=== PATIENT | male | born 1965 | race Caucasian/White ===

== ENCOUNTER 2025-05-02 12:48 | Inpatient (IN) | payer OTHER, SELFPAY ==
[2025-05-02] VITALS (12 sets, daily range): BP systolic 149–204; BP diastolic 89–120; BMI 22.5; BMI 21.1
[2025-05-02 07:45] LABS: Hematocrit 35.3 % (39.0-52.0); Hemoglobin 12.4 g/dL (13.0-18.0); Mean Corp Hgb Conc. 35.1 g/dL (33.0-37.0); Mean Corpuscular Volume 87.6 fL (80.0-94.0); Nucleated Red Blood Cells % 0 % (-); Platelet Count 265 10^3/uL (130-400); Red Cell Dist. Width 16.0 % (11.5-14.5)
--- NOTE | 2025-05-02 07:45 | ED.GENMED ---
History of Present Illness
<Sommer Joyner MD, Resident - Last Filed: 05/02/25 11:53>
General
Chief Complaint: Alcohol Problem
Source: patient
Time Seen by Provider: 05/02/25 07:09
Nursing documentation reviewed up to this point in time: agreed with except (Pt states last cocaine use was 20 years ago)
History of Present Illness
History of Present Illness:
Mr. Esteban Herrera is a 59-year-old male with a PMH notable for alcohol, cocaine, and fentanyl use disorders and pancreatitis, who is presenting with nausea, vomiting, chest pain, abdominal pain, and shivers for 2 days. He presents from methadone
clinic (Dr. Wright), where he was given a 2-day supply of methadone. They told him to come to the ED.
2 days ago, after having alcohol, fentanyl, and benzodiazepines, he started vomiting and developed throat and chest pain 1 hour later, which he rates as 10 out of 10 now. He reports losing consciousness and being shaken awake. He endorses blood in
his emesis. He has not eaten in 2 days and is requesting ice chips.
He states his 'tremors' occur when he is cold, and disappear when he is warm. He endorses hallucinations, including seeing ghosts. He denies having fevers.
He states he started drinking 1 year ago after the of his mom, whom he was close with. He was notified in senior care that she had past 2 weeks after she had passed. He he cremated her and then started using substances. He endorses having
pancreatitis before.
Patient states he wants to get better and pursue long-term [facility] treatment. Sees Dr. Wright at a methadone clinic in [place].
Past History
<Sommer Joyner MD, Resident - Last Filed: 05/02/25 11:53>
Social History
Alcohol: Chronic alcoholic
Drug: Narcotics and Other (benzo)
Review of Systems
<Sommer Joyner MD, Resident - Last Filed: 05/02/25 11:53>
Review of Systems
All Other Systems: ROS reviewed and negative except as documented in HPI and ROS
Cardiac: Reports chest pain (With throat pain and upper abdominal pain)
ABD/GI: Reports abdominal pain and vomiting (Hematemesis)
Psychiatric: Reports hallucinations (Such as seeing ghosts)
Phy Exam
<Sommer Joyner MD, Resident - Last Filed: 05/02/25 11:53>
Physical Exam
Physical Exam:
General: dry mucous membranes
Cardiovascular: Tachycardic, no pedal edema
GI: Tenderness to palpation in all quadrants, normal bowel sounds
Lungs: Clear to auscultation bilaterally, no subcutaneous emphysema
Neuro: Not tremulous, alert
Skin: No diaphoresis, no excoriations
Scores
<Sommer Joyner MD, Resident - Last Filed: 05/02/25 11:53>
Withdrawal Assessment of Alcohol
Withdrawal Assessment Completed?: Yes
Nausea and Vomiting: Intermittent nausea with dry heaves
Tactile Disturbances: Moderate itching, pins and needles , burning or numbness
Tremor: No tremor
Auditory Disturbances: Not present
Paroxysmal Sweats: No sweat visible
Visual Disturbances: Moderately severe hallucinations
Anxiety: Moderately anxious, or guarded, so anxiety is inferred
Headache, Fullness in Head: Not present
Agitation: Normal activity
Orientation and clouding of sensorium: Disoriented for date by more than 2 calendar days (But can do serial additions)
Total CIWA Score: 18
Alcohol Withdrawal Medication Recommendation: Equal to MSAS Score 8-11. Lorazepam 1-2mg IV NOW & re-assess q1hr
Course
<Sommer Joyner MD, Resident - Last Filed: 05/02/25 11:53>
Orders/Labs/Results
Orders:
Orders
05/02/25 06:45
EKG [Electrocardiogram (*1)] Urgent
Reason for Study: Chest Pain
05/02/25 06:46
EKG- Treatment ONCE
05/02/25 07:32
Alcohol Urgent
Basic Metabolic Panel Urgent
Complete Blood Count/With Diff Urgent
Lipase Urgent
Troponin I Urgent
05/02/25 08:19
Add On- LAB Urgent
Tests Added?: LFTs
CR Chest - 2 Views Urgent
Comment:
Reason For Exam: cp
05/02/25 08:23
Lorazepam [Ativan] 2 mg IV NOW STA
05/02/25 08:24
Pantoprazole [Protonix IV] 80 mg IV NOW STA
05/02/25 08:30
Sterile Water [Sterile Water For Injection] 20 ml .ROUTE .STK-MED
05/02/25 10:10
[id number] Urgent
Comment: HEMOLYZED
Potassium Urgent
Comment: HEMOLYZED
05/02/25 10:51
Clonidine [Catapres] 0.1 mg PO NOW STA
05/02/25 11:19
Troponin I Urgent
Abnormal Lab Results
05/02/25 05/02/25
07:32 10:10
RBC 4.03 L 10^6/uL
(4.70-6.10)
Hgb 12.4 L g/dL
(13.0-18.0)
Hct 35.3 L %
(39.0-52.0)
RDW 16.0 H %
(11.5-14.5)
Absolute Lymphs (auto) 0.3 L 10^3/uL
(1.2-3.4)
Neutrophils % 89.4 H %
(42.2-75.2)
Lymphocytes % 3.9 L %
(20.5-51.1)
Chloride 93 L mmol/L
(98-107)
BUN 31 H mg/dl
(9-20)
Glucose 160 H mg/dl
(70-99)
Direct Bilirubin 0.5 H mg/dl
(0.0-0.4)
05/02/25 07:32
05/02/25 10:10
Vital Signs
Initial and Last Documented VS:
Initial Vital Signs
Temp Pulse Resp BP Pulse Ox
98.1 F 120 16 199/120 98
05/02/25 06:50 05/02/25 06:50 05/02/25 06:50 05/02/25 06:50 05/02/25 06:50
Last Documented Vital Signs
Temp Pulse Resp BP Pulse Ox
98.1 F 98 16 176/113 100
05/02/25 06:50 05/02/25 11:15 05/02/25 11:15 05/02/25 11:13 05/02/25 08:30
<Dev Mares, DO - Last Filed: 05/02/25 11:37>
Orders/Labs/Results
Orders:
Orders
05/02/25 06:45
EKG [Electrocardiogram (*1)] Urgent
Reason for Study: Chest Pain
05/02/25 06:46
EKG- Treatment ONCE
05/02/25 07:32
Alcohol Urgent
Basic Metabolic Panel Urgent
Complete Blood Count/With Diff Urgent
Lipase Urgent
Troponin I Urgent
05/02/25 08:19
Add On- LAB Urgent
Tests Added?: LFTs
CR Chest - 2 Views Urgent
Comment:
Reason For Exam: cp
05/02/25 08:23
Lorazepam [Ativan] 2 mg IV NOW STA
05/02/25 08:24
Pantoprazole [Protonix IV] 80 mg IV NOW STA
05/02/25 08:30
Sterile Water [Sterile Water For Injection] 20 ml .ROUTE .STK-MED
05/02/25 10:10
Usyvf-Kiqo-Twhvmwp Urgent
Comment: HEMOLYZED
Potassium Urgent
Comment: HEMOLYZED
05/02/25 10:51
Clonidine [Catapres] 0.1 mg PO NOW STA
05/02/25 11:19
Troponin I Urgent
Abnormal Lab Results
05/02/25 05/02/25
07:32 10:10
RBC 4.03 L 10^6/uL
(4.70-6.10)
Hgb 12.4 L g/dL
(13.0-18.0)
Hct 35.3 L %
(39.0-52.0)
RDW 16.0 H %
(11.5-14.5)
Absolute Lymphs (auto) 0.3 L 10^3/uL
(1.2-3.4)
Neutrophils % 89.4 H %
(42.2-75.2)
Lymphocytes % 3.9 L %
(20.5-51.1)
Chloride 93 L mmol/L
(98-107)
BUN 31 H mg/dl
(9-20)
Glucose 160 H mg/dl
(70-99)
Direct Bilirubin 0.5 H mg/dl
(0.0-0.4)
05/02/25 07:32
05/02/25 10:10
Vital Signs
Initial and Last Documented VS:
Initial Vital Signs
Temp Pulse Resp BP Pulse Ox
98.1 F 120 16 199/120 98
05/02/25 06:50 05/02/25 06:50 05/02/25 06:50 05/02/25 06:50 05/02/25 06:50
Last Documented Vital Signs
Temp Pulse Resp BP Pulse Ox
98.1 F 98 16 176/113 100
05/02/25 06:50 05/02/25 11:15 05/02/25 11:15 05/02/25 11:13 05/02/25 08:30
<Sommer Joyner MD, Resident - Last Filed: 05/02/25 11:53>
MDM/Problems Addressed
Differential Diagnosis Includes:
Esophageal ulceration and/or rupture
Gastritis
Esophageal varices
Opioid withdrawal
Alcohol withdrawal
ACS
Vasospastic angina: Less likely as patient reports stopping cocaine 20 years ago
GERD
Pancreatitis
MDM/Problems Addressed:
Chest x-ray
N.p.o.
EKG sinus tachycardia with left axis deviation
Troponin 0.018; ACS unlikely
CMP: hypochloremia consistent with emesis, elevated BUN 31, normal Cr
Lipase normal; pancreatitis unlikely
LFT
CBC
IV fluids
Chronic conditions affecting care: Other (Alcohol, opioid, and benzodiazepine use disorders)
Acute Exacerbation and/or Progression of Chronic Illness: HTN
<Sommer Joyner MD, Resident - Last Filed: 05/02/25 11:53>
*Radiology
Radiology exam reviewed: radiology read reviewed
*Pulse Oximetry
SaO2: 98
Oxygen Mode of Delivery: Room air
Patient hypoxic: no
*EKG
Interpreted by ED Provider?: Yes
Rate: tachycardiac
Rhythm: sinus
[place]: left axis deviation
Interval: long QT
Ischemia: non-specific ST changes
*Prorate Clerk Interpretation
Rate: tachycardiac
Interpretation: abnormal
Rhythm: sinus
<Dev Mares, DO - Last Filed: 05/02/25 11:37>
*Critical Care Note
Total Time (30-74mins, 75-104mins- exclusive of procedures): 35 minutes
Data Reviewed
Source: patient
Further Testing Considered But Not Given:
Consider chest CT in light of his chest pain however given his vomiting and exam, and chest x-ray, hold off on CT imaging for now
<Sommer Joyner MD, Resident - Last Filed: 05/02/25 11:53>
Patient Management
Social determinants of health affecting care: Substance abuse
<Dev Mares, DO - Last Filed: 05/02/25 11:37>
Patient Management
Discussion with other providers: Hospitalist
ED Attending Note
<Sommer Joyner MD, Resident - Last Filed: 05/02/25 11:53>
-
Portions of this chart may have been created with voice recognition software.� Occasional wrong word or��sound alike� substitutions may have occurred due to the inherent limitations of voice recognition software.
<Dev Mares, - Last Filed: 05/02/25 11:37>
ED Attending Note
Patient seen and examined by attending physician: Yes
I performed a history and physical exam of patient and discussed management with resident, I reviewed resident's note and agree with documented findings and plan of care.: Yes
ED Attending Note:
Note:
CHIEF COMPLAINT(S)
Nausea, severe throat pain, feeling unwell.
HISTORY OF PRESENT ILLNESS
The patient, a 60-year-old male, presents with nausea, body-wide discomfort, and severe throat pain that began two days ago. These symptoms coincided with his move from [place]. The patient reports previous medical encounters at [facility]. He has a recent history of excessive alcohol intake, consuming a bottle of vodka or whiskey daily, and acknowledges regular fentanyl use via snorting. He ceased alcohol consumption after experiencing an inability to manage intake and was
previously found unconscious ten days ago, requiring hospitalization. He expresses a desire to quit substance use and mentions a readiness to consider rehabilitation.
He reports a previous critical health episode about ten days ago, where he was found unresponsive and required resuscitation at [facility]. The patients current medical examination reveals symptoms consistent with sinus
tachycardia, as evidenced by his heart rate of 107 to 110. His telemetry shows sinus tachycardia, and his blood pressure is elevated.
ALLERGIES
The patient reports an allergy to Toradol, which causes him to vomit.
SOCIAL HISTORY
The patient has a history of significant alcohol use, approximately one bottle of vodka or whiskey daily, and fentanyl use via insufflation. He expresses the desire to cease substance use and is open to rehabilitation.
PHYSICAL EXAM
General: Alert, in mild distress due to discomfort.
Cardiovascular: Regular heart rhythm with tachycardia at a rate of 107-110 bpm. Elevated blood pressure noted.
Respiratory: Lungs clear to auscultation with equal breath sounds bilaterally.
Gastrointestinal: Abdomen is soft, nondistended, with mild epigastric tenderness.
Neurological: Cranial nerves intact, no focal motor deficits observed.
PLAN
- Administer medications for relaxation and symptomatic relief.
- Initiate fluid therapy.
- Perform a chest X-ray.
- Conduct laboratory investigations.
- Consider pain management as necessary.
- Discuss rehabilitation options for substance use cessation.
DIFFERENTIAL DIAGNOSIS
The Differential Diagnosis includes, in no particular order and is not limited to:
1. Alcohol withdrawal
2. Substance use disorder
3. Gastroesophageal reflux disease
4. Acute pharyngitis
5. Peptic ulcer disease
6. Esophagitis
7. Viral tonsillitis
8. Sinus tachycardia secondary to substance use
9. Hypertensive urgency
10. Anxiety-related symptoms
Disposition:
SUMMARY OF ENCOUNTER
The patient, a 60-year-old male, presented with symptoms likely related to alcohol withdrawal after ceasing excessive alcohol use two days ago. His symptoms included hypertension, tachycardia, and hallucinations. Given his history of significant
alcohol intake and recent cessation, he was evaluated for possible alcohol withdrawal and alcoholic gastritis. Medications were administered to manage his symptoms and alleviate distress.
DISPOSITION
Admit.
ASSESSMENT
The patients clinical presentation and history strongly suggest alcohol withdrawal syndrome, alongside possible alcoholic gastritis, as indicated by nausea and epigastric discomfort.
EMERGENCY TREATMENTS ADMINISTERED
Clonidine was administered to address hypertension and tachycardia, and a proton pump inhibitor (PPI) was given for suspected alcoholic gastritis.
MANAGEMENT OF THE PATIENTS CARE WAS DISCUSSED WITH
The resident discussed patient management with the hospitalist team for admission.
PLAN
- Continue monitoring and managing symptoms of alcohol withdrawal.
- Initiate treatment for alcoholic gastritis with PPIs.
- Supportive care with intravenous fluids and medications to manage hypertension and tachycardia.
- Admission to the hospital for further observation and management of withdrawal symptoms.
MEDICATION RECONCILIATION
- Clonidine administered.
- Proton pump inhibitor administered.
MEDICAL DECISION MAKING
1. Number and Complexity of Problems Addressed: Chronic conditions affecting care include his substance use disorder. Differential diagnosis includes alcohol withdrawal, substance use disorder, hypertensive urgency, and anxiety-related symptoms.
2. Data:
- Category 1: Reviewed laboratory tests to assess the patients physiological status pertinent to withdrawal symptoms.
- Category 2: Management discussion with the hospitalist regarding the need for inpatient care due to the severity of symptoms.
3. Risk: Prescription medication was prescribed. Due to the risk of complications associated with alcohol withdrawal, hospitalization was warranted to ensure the patients safety and provide intensive monitoring and management.
DIAGNOSIS
- Alcohol withdrawal syndrome (ICD-10: F10.239)
- Alcoholic gastritis (ICD-10: K29.20)
- Hypertensive urgency (ICD-10: I16.0)
Discharge Plan
Departure
Patient Disposition: Admit
Date of Disposition: 05/02/25
Time of Disposition: 11:19
Admit to: IMU
Presentation/result/management discussed w/ accepting MD/DO: Hospitalist
Condition: Fair
Discharge Problem:
Acute hyperactive alcohol withdrawal delirium, Hiatal hernia with gastroesophageal reflux, Acute alcoholic gastritis
Prescriptions:
No Action
methadone 10 mg/5 mL Solution
40 mg PO DAILY
Patient Comments:
patient goes to [facility] in [facility].
Amlodipine Tablets
1 tab PO DAILY
Clonidine Tablets
0.1 mg PO BID
Metoprolol
1 tab PO DAILY
Patient Comments:
no pharamcy records, no ecw as of 05/02/25
quetiapine [Seroquel] 200 mg Tablet
200 mg PO HS
venlafaxine [Effexor XR] 150 mg Capsule,Extended Release 24hr
150 mg PO DAILY
Referrals:
Rosalie Gary MD [Family Provider, Internal Medicine]
Interventions
Interventions:
*General Assessment Last Done: 05/02/25 07:18
*ED- Fall Risk Assessment Last Done: 05/02/25 07:18
*ED COVID-19 Vaccine History Last Done: 05/02/25 07:18
ED- Neurological Assessment Last Done: 05/02/25 07:20
ED-Psychological Assessment Last Done: 05/02/25 07:47
Discharge Date and Time
Print Language: LITHUANIAN
[2025-05-02 08:10] LABS: Troponin I 0.018 ng/ml
[2025-05-02 08:24] LABS: Blood Urea Nitrogen 31 mg/dl (9-20); Calcium 9.5 mg/dl (8.4-10.2); Carbon Dioxide 22 mmol/L (22-30); Chloride 93 mmol/L (98-107); Estimated Creatinine Clearance 83 ml/min; Glucose 160 mg/dl (70-99); Lipase 140 U/L (23-300); Sodium 135 mmol/L (135-145); eGFR > 60.00
--- NOTE | 2025-05-02 08:26 | PHANOTE ---
med rec note- patient has no ecw, no pharmacy records or pd[facility] records to find medication
[2025-05-02] MEDS: PROTONIX IV 80 MG IV (08:35)
[2025-05-02] MEDS: ATIVAN 2 MG IV (08:35)
[2025-05-02 10:49] LABS: ALT (SGPT) 12 U/L (0-50); AST (SGOT) 35 U/L (17-59); Albumin 4.6 g/dl (3.5-5.0); Alkaline Phosphatase 97 U/L (38-126); Potassium 4.1 mmol/L (3.5-5.1); Total Protein 7.8 g/dl (6.3-8.2)
[2025-05-02] MEDS: CATAPRES 0.1 MG PO ×3 (10:59→23:02)
--- NOTE | 2025-05-02 11:19 | HPS.HSE ---
Family Physician
-
Family Physician: Rosalie Gary
Chief Complaint
-
Vomiting
History of Present Illness
This is a 59 y/o male with pmhx of essential hypertension, alcohol abuse, fentanyl abuse, benzodiazepine abuse and heroin abuse who presented to the ED on 05/02/2025 with nausea, vomiting, tremors, chills. This was accompanied by shortness of breath
and pain all over, but especially pain in his left abdomen. He reports these symptoms appeared after consuming fentanyl, heroin and 1 bottle of vodka 2 days ago. He also began to experience chest pain at that time in his midline chest and jaw, so he
decided to try taking benzos without improvement. He then became nauseous and began to vomit, and since then and today he has vomited 'hundreds' of times. Today just prior to his ED visit he began to vomit blood, which he describes as red and mushy.
He reports vomiting multiple times each hour, though has not vomited since arriving at the ED.
Today, he reports generally feeling very unwell, and states that he is done drinking and would like to go to an inpatient rehab after his admission. He denies any history of alcohol withdrawal in the past, denies any history of seizures. He denies
any recent use of NSAIDs. He does report having pancreatitis 2 times in the last 6 months.
Medical History
Past Medical History
Past Medical History: Reports HTN and Other (alcohol abuse, fentanyl abuse, benzodiazepine abuse, heroin abuse, cocaine abuse in remission)
Past Surgical History: Reports None
Social History
Tobacco: Smoker (10 cigarettes/day for 45 years)
Alcohol: Daily (Consumes 1 750mL bottle vodka daily)
Drug: Cocaine (Last use 20 years ago) and Other (Fentanyl, Benzodiazepines, Heroin)
Family History
Family History: CAD (Brother, from heart attack) and Hypertension (Mother)
Allergies / Home Medications
Allergies reflects when Allergies were last updated in [employer].
Home Medications with original date entered in [employer]
Allergy/Medication List:
Allergies
Allergy/AdvReac Type Severity Reaction Status Date / Time
No Known Allergies Allergy Verified 05/02/25 06:53
Home Medications
Amlodipine Tablets 1 tab PO DAILY 05/02/25
Clonidine Tablets 0.1 mg PO BID 05/02/25
Metoprolol 1 tab PO DAILY 05/02/25
methadone 10 mg/5 mL oral solution 40 mg PO DAILY 05/02/25
quetiapine 200 mg tablet (Seroquel) 200 mg PO HS 05/02/25
venlafaxine 150 mg capsule,extended release 24 hr (Effexor XR) 150 mg PO DAILY 05/02/25
Review of Systems
-
History Source: Patient
A 12 point ROS was completed and negative except as noted: Yes
Constitutional: Reports Fatigue, Sleep Disturbance and Chills
Respiratory: Reports Trouble Breathing; Denies Cough
Cardiac: Reports Chest Pain and Palpitations
Abdomen/GI: Reports Abdominal Pain, Nausea, Vomiting (Bloody recently) and Diarrhea (Non-bloody); Denies Constipated or Bloody Stools
: Reports No Symptoms
Musculoskeletal: Reports Joint Pain and Muscle Pain
Skin: Denies Itching or Rash
Neurological: Reports Dizzy, Headache and Weakness
Physical Exam
Vital Signs
Vital Signs
Temp Pulse Resp BP Pulse Ox
98.1 F 94 17 187/111 100
05/02/25 06:50 05/02/25 10:59 05/02/25 10:00 05/02/25 10:59 05/02/25 08:30
Physical Exam
General: Well Developed, Well Nourished, Pain and Chills
HEENT: NormoCephalic, Anicteric, Atraumatic, Nose Appears Normal and Ears Appear Normal
Respiratory: Other (Coarse breath sounds bilaterally)
Cardiac: S1/S2, Regular Rhythm and Tachycardia
GI: Soft and Tender (Diffusely Tender); No Distended
Rectal: Deferred by Provider
Genito-urinary: Deferred by me
Musculoskeletal: No Edema
Skin: Warm and Dry
Neuro: Awake, Alert and Oriented; No Slurred Speech or Tremors (Patient had already received a dose of Ativan prior to my visit. I did not observe any tremors during this physical exam)
Psych: Calm and Intact Judgment/Insight
Laboratory Results
-
05/02/25 07:32
05/02/25 10:10
Laboratory Results
Total Bilirubin 0.8 mg/dl (0.2-1.3) 05/02/25 10:10
AST 35 U/L (17-59) 05/02/25 10:10
ALT 12 U/L (0-50) 05/02/25 10:10
Alkaline Phosphatase 97 U/L (38-126) 05/02/25 10:10
Troponin I 0.018 ng/ml 05/02/25 07:32
Lipase 140 U/L (23-300) 05/02/25 07:32
Impression/Plan
-
IMPRESSION:
This is a 59 y/o male with pmhx of essential hypertension, alcohol abuse, fentanyl abuse, benzodiazepine abuse, heroin abuse who presented to the ED today with nausea/vomiting/tremors/chills due to withdrawal from all of the aformentioned substances.
PLAN:
Alcohol Withdrawal/Polysubstance Withdrawal
-Admitted patient to the hospital for acute withdrawal from multiple substances
-Will monitor COWS and MSAS. Phenobarbital taper not indicated at this time.
-Ordered Alcohol level, B-hydroxybutyrate, Magnesium, Phosphorus, Coagulation studies, UA, UDS, GGTP
-Started on IV maintenance fluids
-Ordered IV Pantoprazole, Thiamine supplementation, Folic Acid supplementation
-Ordered PRN Zofran for Nausea and PRN tylenol for Pain
-Will monitor
Essential Hypertension
-Continue home meds (Amlodipine, clonidine, metoprolol)
Cocaine Abuse in Remission
-Patient reports last use of cocaine 20 years ago
-Patient's hest pain unlikely to be prinzmetal angina due to 20 year remission history
-Ordered UDS
-Encouraged continued cessation
[2025-05-02 12:53] LABS: Troponin I 0.028 ng/ml
--- NOTE | 2025-05-02 13:56 | CM ---
Addendum entered by Roslyn Titus 05/02/25 14:13:
I notified Barb at [facility], she will speak to the patient about insurance.
Original Note:
CM reviewed chart and met with pt bedside in ED. Pt was living in [place] but states 2 days ago he gave up his place and moved in with his friend Alize. He does not know the address but confirms it is in [place]. He states it is a one story
home, no ABBIE.
Independent in ADLs and personal care at baseline, ambulates without assistive devices.
Pt states he has had inpatient Drug and Alcohol treatment in the past and is interested in this now. He currently goes to [facility].
[facility].
PCP: Rosalie Gary
Pharmacy: has not used local pharmacy
CM will continue to follow for discharge planning needs.
[2025-05-02 16:46] LABS: GGTP 34 U/L (15-73); Magnesium 1.6 mg/dl (1.6-2.3)
[2025-05-02 17:14] LABS: APTT 24.5 Sec (23.4-35.0); INR 1.03; PT 13.8 Sec (11.4-14.6)
[2025-05-02] MEDS: ATIVAN 1 MG PO ×2 (17:17→22:04)
[2025-05-02] MEDS: FOLVITE 1 MG PO (17:18)
[2025-05-02] MEDS: ZOFRAN 4 MG IV (17:21)
[2025-05-02 17:32] LABS: Urine Character Clear (Clear)
[2025-05-02 18:03] LABS: Urine Red Blood Cell 0-2 /HPF (0-2); Urine White Cell 0-2 /HPF (0-5)
[2025-05-02] MEDS: THIAMINE INJECTION 200 MG IV (20:34)
[2025-05-02] MEDS: ANESTHETIC LOZENGE 1 LOZENGE PO (20:34)
[2025-05-02] MEDS: TYLENOL 1000 MG PO (20:34)
[2025-05-02] MEDS: PROTONIX IV 40 MG IV (20:36)
[2025-05-02] MEDS: NSS (PRESERVATIVE FREE) 10 ML IV (20:36)
[2025-05-03] VITALS (8 sets, daily range): BP systolic 130–178; BP diastolic 66–105
[2025-05-03] MEDS: ANESTHETIC LOZENGE 1 LOZENGE PO ×2 (04:57→12:26)
[2025-05-03] MEDS: ZOFRAN 4 MG IV (05:36)
[2025-05-03] MEDS: NSS (PRESERVATIVE FREE) 10 ML IV ×2 (08:04→20:04)
[2025-05-03 08:05] LABS: ALT (SGPT) 11 U/L (0-50); AST (SGOT) 39 U/L (17-59); Albumin 4.0 g/dl (3.5-5.0); Alkaline Phosphatase 81 U/L (38-126); Blood Urea Nitrogen 27 mg/dl (9-20); Calcium 8.7 mg/dl (8.4-10.2); Carbon Dioxide 29 mmol/L (22-30); Chloride 99 mmol/L (98-107); Estimated Creatinine Clearance 70 ml/min; Glucose 97 mg/dl (70-99); Potassium 3.6 mmol/L (3.5-5.1); Sodium 134 mmol/L (135-145); Total Protein 7.1 g/dl (6.3-8.2); eGFR > 60.00
[2025-05-03] MEDS: METHADONE 100 MG/10 ML 40 MG PO (08:14)
[2025-05-03] MEDS: EFFEXOR XR 150 MG PO (08:18)
[2025-05-03] MEDS: TOPROL XL 50 MG PO (08:18)
[2025-05-03] MEDS: NORVASC 5 MG PO (08:18)
[2025-05-03] MEDS: FOLVITE 1 MG PO (08:19)
[2025-05-03] MEDS: CATAPRES 0.1 MG PO ×2 (08:19→17:45)
[2025-05-03 08:20] LABS: Hematocrit 28.2 % (39.0-52.0); Hemoglobin 9.7 g/dL (13.0-18.0); Mean Corp Hgb Conc. 34.4 g/dL (33.0-37.0); Mean Corpuscular Volume 88.4 fL (80.0-94.0); Platelet Count 197 10^3/uL (130-400); Red Cell Dist. Width 15.2 % (11.5-14.5)
[2025-05-03] MEDS: PROTONIX IV 40 MG IV ×2 (08:21→20:04)
[2025-05-03] MEDS: THIAMINE INJECTION 200 MG IV ×2 (08:22→21:53)
[2025-05-03] MEDS: FLUSH (NSS) 3 FLUSH IV (08:23)
[2025-05-03] MEDS: KCL 270 MEQ IV (08:41)
--- NOTE | 2025-05-03 10:18 | CM ---
Patient with Hx polysubstance abuse with Dx Drug and Etoh Withdrawal. Rom air. Per nurse: 1:1 observation for suicide risk. Psych Consult pending. COWS, MSAS per nurse. Receiving Methadone, IV Ativan prn. Per nurse; ambulatory in room.
CM Consult: Alcohol Withdrawal Risk, Suicide Risk
Message to Dr Lopez---> ED Nurse entered CM Consult for Suicide Risk- Case Management does not eval for suicide risk, if this is a concern Psych will need to evaluate.
Spoke with CHAUNCEY Grover; provided update patient is in 1:1 observation for suicide risk. Per Reilly, patient will need to be cleared via Psych Consult in order for an inpatient substance abuse facility to accept. A referral is being made to
[facility]. CHAUNCEY will follow up on 05/05 about inpatient rehab.
Plan follow up after seen by Psych.
Plan follow up with CHAUNCEY 05/05 re; [facility].
--- NOTE | 2025-05-03 11:39 | CS.PSYCHR ---
Consult Summary - Psychiatry
-
Pt is a 59 yo male, with history of opioid use, on Methadone maintenance, referred by his Methadone clinic for alcohol and benzo withdrawal, as well relapse on fentanyl. UDS on admission also positive for cocaine. Psychiatry asked to evaluate for
SI on screener. Pt seen resting in bed, in no acute distress, watching TV. Pt cooperative, making good eye contact, answering questions. He reports drinking a bottle of vodka or whiskey until 2 days prior to admission, when he developed N/V. Pt
states he is not going back to substance use, states he is '90%' regarding wanting to go to drug rehab- one that allows Methadone maintenance.
Pt denies any suicidal ideation, states he had a moment yesterday when he felt really bad from withdrawal symptoms. He denies any recent SI; he states he had SI in the past- 8 or 10 years ago.
Psych Hx: one admission [facility] with [facility] approx 8 or 10 years ago. Prescribed Effexor XR 150 mg QD for over 10 years, managed by PCP
On Seroquel 200 mg HS x 2 years; pt states he does not like Seroquel and wants to stop it (being held here, has prolonged QTc 513 today)
SH: just moved from [place] to stay with a friend in the [facility]; had a [employer] business on , but lost it
MSE: alert, oriented, calm, cooperative. Speech coherent, thought goal-directed. No signs of psychosis. Denies any suicidal ideation/plan/intent. Insight fair
Imp: Opioid Use d/o, on Methadone Maintenance tx, relapse on Fentanyl
Polysubstance Use d/o- Alcohol, benzo, cocaine
Unspecified depressive d/o, stable on long-standing Effexor XR. Denies SI, risk for self-harm appears low/ does not require 1:1 supervision
Rec: continue current detox mgt; continue Methadone maintenance. Consider drug rehab when stable
Continue existing Effexor XR. Hold off Seroque, may need to give tapering-down dose. Will follow.
--- NOTE | 2025-05-03 11:51 | PTCARENOTE ---
Dr Mota saw patient- per physician patient does not need to be on 1:1 observation for suicide. 1:1 observation stopped at 1145- bed alarm placed and instructed patient not to get OOB without assistance. voiced understanding. call nixon in reach.
plan of care on going.
--- NOTE | 2025-05-03 12:00 | PTCARENOTE ---
patient requesting ativan for restlessness and feeling jittery. MSAS 3, not qualifying for Ativan. patient aware. Dr Lopez notified and will place order for a one time dose of ativan. patient aware. plan of care on going.
[2025-05-03] MEDS: ATIVAN 1 MG PO ×2 (12:26→21:51)
--- NOTE | 2025-05-03 13:49 | W.PN.HOSP.TC ---
Today's Communication/Plan
-
monitor QT interval
CBC, CMP MONITOR
Assessment / Plan
Assessment / Plan
59 yrs old male with essential Hypertension,polysubstance abuse currently experiencing non cardiac chest pain.
Alcohol withdrawal syndrome/ Poly substance abuse):
-MSAS Score for today is= 3
-Phenobarbital taper not indicated at this time.
-Positive for Methodone, Fentanyl, Benzodiazepines, Cocaine.
-Started on IV maintenance fluids
- IV Pantoprazole, Thiamine supplementation, Folic Acid supplementation is given for the withdrawal symptoms.
-Ordered PRN Zofran for Nausea and PRN tylenol for Pain
-ECG : showed QTc Int : 513 ms( prolongation), might be due to seroquel 200mg; and medication held for today. Tomorrow (continue to monitor QT prolongation)
Opioid Withdrawal:
Currently patient on Methadone 40 mg PO maintenance dose daily.
Essential Hypertension
-Continuing with home meds (Amlodipine, clonidine, metoprolol)
Cocaine Abuse in Remission
-Patient reports last use of cocaine 20 years ago
-Patient's chest pain unlikely to be prinzmetal angina due to 20 year remission history
-Encouraged continued cessation.
Anticipated Discharge: 24 - 48 hours
Subjective/Interval History
-
Date of Service: May 03, 2025
Patient has concerns for chest pain from jaw to supra abdominal pain for the whole. and he needs Ativan for his chest pain.
Objective Data
-
Labs:
05/03/25 13:44
05/03/25 07:12
Laboratory Results
PT 13.8 Sec (11.4-14.6) 05/02/25 16:50
INR 1.03 05/02/25 16:50
APTT 24.5 Sec (23.4-35.0) 05/02/25 16:50
Total Bilirubin 0.8 mg/dl (0.2-1.3) 05/03/25 07:12
AST 39 U/L (17-59) 05/03/25 07:12
ALT 11 U/L (0-50) 05/03/25 07:12
Alkaline Phosphatase 81 U/L (38-126) 05/03/25 07:12
Troponin I 0.028 ng/ml D 05/02/25 11:57
Lipase 140 U/L (23-300) 05/02/25 07:32
Laboratory Results
05/03/25 05/03/25
07:12 13:44
WBC 5.7 Pending
Hgb 9.7 L D Pending
Hct 28.2 L Pending
Plt Count 197 D Pending
Sodium 134 L
Potassium 3.6
Chloride 99
Carbon Dioxide 29
BUN 27 H
Creatinine 1.0
Glucose 97
Calcium 8.7
Total Bilirubin 0.8
AST 39
ALT 11
Alkaline Phosphatase 81
Vital Signs:
Vital Signs
Temp Pulse Resp BP Pulse Ox
97.6 F 65 20 161/98 100
05/03/25 11:11 05/03/25 11:11 05/03/25 11:11 05/03/25 11:11 05/03/25 11:11
I&O
05/02/25 05/03/25 05/04/25
06:59 06:59 06:59
Intake Total 120 / 120
Output Total 675 / 675
Balance -555 / -555
Review of Systems
-
History Source: Patient
Constitutional: Reports No Symptoms
Cardiac: Reports Other (pain from jaw to lower abdomen mentioned as a sharp pain. )
Genitourinary: Reports No Symptoms
Musculoskeletal: Reports No Symptoms
Skin: Reports No Symptoms
Neuro: Reports No Symptoms
Endocrine: Reports No Symptoms
Hematologic / Lymphatic: Reports No Symptoms
Allergy / Immunology: Reports No Symptoms
Physical Exam
-
General: Appears in Distress
HEENT: Normocephalic
Respiratory: Clear to Auscultation
Cardiac: Regular Rhythm and S1/S2
GI: Soft and Nontender
Genito-urinary: No Costovertebral Tender
Musculoskeletal: No Clubbing
Skin: Warm
Neuro: AO x 3
Psych: Calm
[2025-05-03 13:53] LABS: Hematocrit 27.8 % (39.0-52.0); Hemoglobin 9.8 g/dL (13.0-18.0); Mean Corp Hgb Conc. 35.3 g/dL (33.0-37.0); Mean Corpuscular Volume 87.4 fL (80.0-94.0); Nucleated Red Blood Cells % 0 % (-); Platelet Count 184 10^3/uL (130-400); Red Cell Dist. Width 15.0 % (11.5-14.5)
[2025-05-03] MEDS: CARAFATE SUSPENSION 1 GM PO ×2 (18:10→21:51)
[2025-05-03] MEDS: APRESOLINE 5 MG IV (20:57)
[2025-05-04] VITALS (7 sets, daily range): BP systolic 138–187; BP diastolic 82–112
[2025-05-04] MEDS: CATAPRES 0.1 MG PO ×4 (00:12→23:37)
[2025-05-04] MEDS: BENADRYL 12.5 MG IV (04:24)
--- NOTE | 2025-05-04 04:47 | PTCARENOTE ---
2304: BP 151/87 HR 68. Pt resting in bed. Current MSAS 1.
2150: Pt continues with anxiety, BP 190/95 HR 61- MSAS 5- 1 mg PO ativan given per order.
1912: Pts BP 178/104 HR 66 pt received clonidine at 1744 rechecked at 2019 177/105, House SIGNAL MECHANIC aware. Checked manual 210/100- pt stating anxiety- scoring 4 on MSAS. SIGNAL MECHANIC notified. Order placed IV hydralazine 5 mg- given at 2056.
--- NOTE | 2025-05-04 06:22 | PTCARENOTE ---
Patient with complaints of nausea, prolonged QT noted on telemetry, pt with orders for zofran. House REGISTERED REPRESENTATIVE aware given IV diphenhydramine 12.5 mg for nausea X1 dose. Checked on pt this AM, pt drowsy but arousable to voice. Pt made this RN aware that
he should not have antihistamines due to history of aggressive behavior. Pt currently pleasantly resting in bed, without any issue at this time. House REGISTERED REPRESENTATIVE made aware. Diphenhydramine and antihistamines added to allergy list.
[2025-05-04 07:08] LABS: Hematocrit 27.7 % (39.0-52.0); Hemoglobin 9.8 g/dL (13.0-18.0); Mean Corp Hgb Conc. 35.4 g/dL (33.0-37.0); Mean Corpuscular Volume 87.4 fL (80.0-94.0); Nucleated Red Blood Cells % 0 % (-); Platelet Count 198 10^3/uL (130-400); Red Cell Dist. Width 14.6 % (11.5-14.5)
[2025-05-04 07:27] LABS: ALT (SGPT) 12 U/L (0-50); AST (SGOT) 33 U/L (17-59); Albumin 3.9 g/dl (3.5-5.0); Alkaline Phosphatase 77 U/L (38-126); Blood Urea Nitrogen 21 mg/dl (9-20); Calcium 9.2 mg/dl (8.4-10.2); Carbon Dioxide 29 mmol/L (22-30); Chloride 100 mmol/L (98-107); Estimated Creatinine Clearance 78 ml/min; Glucose 94 mg/dl (70-99); Potassium 3.7 mmol/L (3.5-5.1); Sodium 133 mmol/L (135-145); Total Protein 7.0 g/dl (6.3-8.2); eGFR > 60.00
[2025-05-04] MEDS: METHADONE 100 MG/10 ML 40 MG PO (08:35)
--- NOTE | 2025-05-04 08:35 | W.PN.HOSP.TC ---
Today's Communication/Plan
-
CBC, CMP Follow up
pottasium 40 mEq PO given for today.
Hydroxyzine if the patient feels anxious.
He is interested in inpatient rehab upon discharge, psych following. Working with CM to find IP rehab.
Will be seen by CHAUNCEY on Monday.�
Assessment / Plan
Assessment / Plan
59 yrs old male with essential Hypertension,polysubstance abuse currently experiencing non cardiac chest pain.
Alcohol withdrawal syndrome/ Poly substance abuse):
-MSAS Score for today is= 3
-Phenobarbital taper not indicated at this time.
-Positive for Methodone, Fentanyl, Benzodiazepines, Cocaine.
-Started on IV maintenance fluids
- IV Pantoprazole, Thiamine supplementation, Folic Acid supplementation is given for the withdrawal symptoms.
-Ordered PRN Zofran for Nausea and PRN tylenol for Pain
-ECG : showed QTc Int shortened 455 ms , might be due to seroquel 200mg; and medication held. Tomorrow (continue to monitor QT prolongation)
- K+ 40 mEq PO started for low pottasium level 3.7 (05/04)
Opioid Withdrawal:
Currently patient on Methadone 40 mg PO maintenance dose daily.
Essential Hypertension
Continuing with home meds (Amlodipine, clonidine, metoprolol XL 50 mg)
Cocaine Abuse in Remission
-Patient reports last use of cocaine 20 years ago
-Patient's chest pain unlikely to be prinzmetal angina due to 20 year remission history
-Encouraged continued cessation.
Disposition: pending (in pt rehab)
Anticipated Discharge: Within 24 hours
Subjective/Interval History
-
Date of Service: May 04, 2025
Patient is getting better today for his difficulty in swallowing. He has no concerns for chest pain, palpitation, dyspnea, tremor, restlessness.
Objective Data
-
Labs:
05/04/25 06:27
05/04/25 06:27
Laboratory Results
PT 13.8 Sec (11.4-14.6) 05/02/25 16:50
INR 1.03 05/02/25 16:50
APTT 24.5 Sec (23.4-35.0) 05/02/25 16:50
Total Bilirubin 0.6 mg/dl (0.2-1.3) 05/04/25 06:27
AST 33 U/L (17-59) 05/04/25 06:27
ALT 12 U/L (0-50) 05/04/25 06:27
Alkaline Phosphatase 77 U/L (38-126) 05/04/25 06:27
Troponin I 0.028 ng/ml D 05/02/25 11:57
Lipase 140 U/L (23-300) 05/02/25 07:32
Laboratory Results
05/04/25
06:27
WBC 4.9
Hgb 9.8 L
Hct 27.7 L
Plt Count 198
Sodium 133 L
Potassium 3.7
Chloride 100
Carbon Dioxide 29
BUN 21 H
Creatinine 0.9
Glucose 94
Calcium 9.2
Total Bilirubin 0.6
AST 33
ALT 12
Alkaline Phosphatase 77
Vital Signs:
Vital Signs
Temp Pulse Resp BP Pulse Ox
98.2 F 66 16 138/82 97
05/04/25 07:20 05/04/25 07:20 05/04/25 07:20 05/04/25 07:20 05/04/25 07:20
I&O
05/03/25 05/04/25 05/05/25
06:59 06:59 06:59
Intake Total 120 / 120
Output Total 675 / 675 350 / 350
Balance -555 / -555 -350 / -350
Review of Systems
-
History Source: Patient
EENT: Reports No Symptoms Reported
Respiratory: Reports No Symptoms
Cardiac: Reports No Symptoms
Abdomen/GI: Reports Abdominal Pain and Other (difficulty in swallowing and pain through out his food pipe.)
Genitourinary: Reports No Symptoms
Musculoskeletal: Reports No Symptoms
Skin: Reports No Symptoms
Neuro: Reports No Symptoms
Endocrine: Reports No Symptoms
Hematologic / Lymphatic: Reports No Symptoms
Allergy / Immunology: Reports No Symptoms
Physical Exam
-
General: No Apparent Distress
Respiratory: Clear to Auscultation
Cardiac: Regular Rhythm and S1/S2
GI: Soft and Nontender
Genito-urinary: No Costovertebral Tender
Skin: Warm
Neuro: AO x 3
Hematologic / Lymphatic: No Lymphadenopathy
[2025-05-04] MEDS: PROTONIX IV 40 MG IV ×2 (08:41→21:49)
[2025-05-04] MEDS: CARAFATE SUSPENSION 1 GM PO ×4 (08:41→21:49)
[2025-05-04] MEDS: EFFEXOR XR 150 MG PO (08:41)
[2025-05-04] MEDS: TOPROL XL 50 MG PO (08:41)
[2025-05-04] MEDS: NSS (PRESERVATIVE FREE) 10 ML IV ×2 (08:42→21:50)
[2025-05-04] MEDS: THIAMINE INJECTION 200 MG IV ×2 (08:42→21:58)
[2025-05-04] MEDS: FOLVITE 1 MG PO (08:42)
[2025-05-04] MEDS: NORVASC 5 MG PO (08:42)
[2025-05-04] MEDS: FLUSH (NSS) 2 FLUSH IV ×2 (08:43→18:31)
[2025-05-04] MEDS: ATIVAN 1 MG PO ×2 (10:59→19:38)
[2025-05-04] MEDS: KCL 40 MEQ PO (12:01)
--- NOTE | 2025-05-04 14:49 | W.PN.UPDATE ---
Update Note
Progress Note Update
Pt seen, resting in bed watching TV. Pt alert, oriented, calm, cooperative, in no apparent distress. Pt states he had started to hallucinate prior to admission, reports he feels much better here, states he was 'in [place].' Pt asking about sleep
agents, but has tried most or can't tolerate them (eg antihistamines cause agitation per pt). Pt states he would need a drug rehab that continues Methadone maintenance- has been to [facility] '5 times, and somebody always dies.' Pt states he feels
okay in mood, prefers not to take Seroquel any more, c/o side effects. [place] appears positive, pt socially engaging, denies SI.
Imp: Opioid Use d/o, on Methadone Maintenance tx, relapse on Fentanyl
Polysubstance Use d/o- Alcohol, benzo, cocaine
Unspecified depressive d/o, stable on long-standing Effexor XR
Rec: continue current detox mgt; continue Methadone maintenance. Consider drug rehab when stable
Will follow intermittently
[2025-05-04] MEDS: ZOFRAN 4 MG IV (18:30)
[2025-05-05] VITALS (10 sets, daily range): BP systolic 143–179; BP diastolic 83–108
[2025-05-05] MEDS: APRESOLINE 5 MG IV (04:51)
[2025-05-05] MEDS: ATIVAN 1 MG PO ×3 (06:10→16:53)
[2025-05-05 07:15] LABS: Hematocrit 29.1 % (39.0-52.0); Hemoglobin 10.4 g/dL (13.0-18.0); Mean Corp Hgb Conc. 35.7 g/dL (33.0-37.0); Mean Corpuscular Volume 87.4 fL (80.0-94.0); Nucleated Red Blood Cells % 0 % (-); Platelet Count 213 10^3/uL (130-400); Red Cell Dist. Width 14.6 % (11.5-14.5)
--- NOTE | 2025-05-05 07:37 | W.PN.HOSP.TC ---
Addendum entered and electronically signed by Mercedez Campo MD 05/05/25 14:21:
I saw and evaluated the patient independently. I reviewed the resident�s note and agree with findings and plan as documented by Dr. Muleler.
GENERAL: well developed, well nourished, male, diaphoretic and anxious--mildly nauseous
HEENT: NC/AT
HEART: regular rate and rhythm, +S1, +S2
LUNGS : clear to auscultation bilaterally
ABDOM: soft, tender LLQ with some guarding, nondistended, + bowel sounds
EXT: no cyanosis, clubbing, or edema
NEUROLOGIC: grossly intact
Alcohol Withdrawal/Polysubstance Withdrawal --urine drug screen positive for methadone, fentanyl, benzodiazepines, cocaine--cont MSAS and COWS protocols--follow K, Mag--cont thiamine, folate--antiemetics--pt agreeable to inpt therapy post
hospitalization--looking at [place]--apprec [facility]
Abdominal Pain--LLQ--possibly due to diverticulitis, splenic infarct/issues, ischemia-- less likely pancreatitis, does not seem like ascites--will check CT scan abdomen/pelvis--further direction based on results
QTc Prolongation--likely due to seroquel--improved since admission
Questionable Hematemesis (Kourtney Thornton tear vs alcoholic gastritis) -RESOLVED--Patient reported hematemesis just prior to arrival--no signs of active bleeding--HGB stable--
Suicidal Ideation--Patient positive for SI on screening upon admission--apprec psych--stop seroquel--effexor also may have some contribution but most likely from drug ingestion/withdrawal
Essential Hypertension--Continue Amlodipine, clonidine, metoprolol--BP still remains elevated--increase clonidine
DVT proph
code status--Full code
Original Note:
Today's Communication/Plan
-
CT Abdomen/Pelvis ordered
Assessment / Plan
Assessment / Plan
Assessment:
This is a 59 y/o male with pmhx of essential hypertension, polysubstance abuse (cocaine, benzos, fentanyl, alcohol) who presented to the ED from his [facility] on 05/02/2025 with nausea/vomiting/tremors/chills that started 2 days before while
consuming 1 bottle of vodka, fentanyl and benzos.
Alcohol Withdrawal/Polysubstance Withdrawal
-Admitted patient to the hospital for acute withdrawal from multiple substances. UDS on admission positive for methadone, fentanyl, benzodiazepines, cocaine
-Will monitor COWS and MSAS. Phenobarbital taper not indicated at this time.
-Continue Thiamine supplementation, Folic Acid supplementation, PRN Zofran for Nausea and PRN tylenol for Pain
-Patient has seen [facility] today for inpatient rehabilitation following his discharge
Abdominal Pain
-Previously diffuse, now left sided
-Ordered CT abdomen/Pelvis with oral and IV contrast
QTc Prolongation
-517 ms on arrival, 433 today
-Patient on both methadone and Seroquel at home.
-Continue telemetry with serial ECG
-Replete to keep Potassium > 4, Magnesium > 2
-Ordered magnesium
Questionable Hematemesis -RESOLVED
-Patient had reported seeing bright red blood in his vomit just prior to arrival
-DD concerning for Kourtney Thornton tear vs alcoholic gastritis
-Hemoglobin and Hematocrit have been stable for the last three days. No episodes of emesis since arrival
Suicidal Ideation
-Patient positive for SI on screening upon admission
-Status post psych evaluation, now off one-to-one
Essential Hypertension
-Continue home meds (Amlodipine, clonidine, metoprolol)
-Added one time 0.1mg dose of Clondine. T/c increasing dose to 0.2mg BID
Anticipated Discharge: 24 - 48 hours
Subjective/Interval History
-
Date of Service: May 05, 2025
Patient was doing well when I arrived. He reports is chest pain is much improved and he is now able to touch his own chest/neck area whereas previously it was acutely tender to the touch. He also reports improvement in his nausea and only has some
mild nausea with eating breakfast with Zofran. He does still report abdominal pain, now mainly on the left side, which has not improved much since his admission.
He did inform me that 10 days prior to his admission he overdosed on medications in [place]. He awoke in [facility] where they told him he had been for 1 hour before they successfully resuscitated him. He reports feeling silly
that he immediately went back to using drugs, and states that he is done with drugs and enthusiastic about going to inpatient rehab after discharge.
Objective Data
-
Labs:
Laboratory Results
05/05/25
06:36
WBC 4.7 L
Hgb 10.4 L
Hct 29.1 L
Plt Count 213
Sodium Pending
Potassium Pending
Chloride Pending
Carbon Dioxide Pending
BUN Pending
Creatinine Pending
Glucose Pending
Calcium Pending
Total Bilirubin Pending
AST Pending
ALT Pending
Alkaline Phosphatase Pending
Vital Signs:
Vital Signs
Temp Pulse Resp BP Pulse Ox
98.3 F 72 16 150/91 98
05/05/25 03:42 05/05/25 06:13 05/05/25 03:42 05/05/25 06:13 05/05/25 03:42
I&O
05/04/25 05/05/25 05/06/25
06:59 06:59 06:59
Intake Total 720 / 720
Output Total 350 / 350
Balance -350 / -350 720 / 720
Review of Systems
-
History Source: Patient
Constitutional: Denies Fever, No Appetite, Fatigue, Chills or Weakness
Respiratory: Denies Cough, Trouble Breathing or Wheezing
Cardiac: Denies Chest Pain, Palpitations or Syncope
Abdomen/GI: Reports Abdominal Pain and Nausea (Improving); Denies Vomiting, Diarrhea or Constipated
Musculoskeletal: Reports Muscle Pain
Skin: Denies Rash
Neuro: Reports Tremors; Denies Dizzy, Headache, Weakness, Numbness or Ataxia
Psych: Reports Anxious
Physical Exam
-
General: Well Developed, Well Nourished, No Apparent Distress, Comfortable and Sweats
HEENT: Normocephalic and Atraumatic
Respiratory: Clear to Auscultation
Cardiac: Regular Rhythm and S1/S2
GI: Soft, Nondistended and Tender (Left upper quadrant tenderness with light palpation, no tenderness to other quadrants)
Skin: Warm and Dry
Neuro: Awake, Alert and Oriented
Psych: Calm and Intact Judgement/Insight
[2025-05-05 07:39] LABS: ALT (SGPT) 11 U/L (0-50); AST (SGOT) 27 U/L (17-59); Albumin 4.1 g/dl (3.5-5.0); Alkaline Phosphatase 74 U/L (38-126); Blood Urea Nitrogen 17 mg/dl (9-20); Calcium 9.3 mg/dl (8.4-10.2); Carbon Dioxide 27 mmol/L (22-30); Chloride 100 mmol/L (98-107); Estimated Creatinine Clearance 70 ml/min; Glucose 103 mg/dl (70-99); Potassium 4.2 mmol/L (3.5-5.1); Sodium 133 mmol/L (135-145); Total Protein 7.0 g/dl (6.3-8.2); eGFR > 60.00
[2025-05-05] MEDS: METHADONE 100 MG/10 ML 40 MG PO (07:46)
[2025-05-05] MEDS: FOLVITE 1 MG PO (07:47)
[2025-05-05] MEDS: CARAFATE SUSPENSION 1 GM PO ×4 (07:47→22:33)
[2025-05-05] MEDS: THIAMINE INJECTION 200 MG IV (07:47)
[2025-05-05] MEDS: TOPROL XL 50 MG PO (07:48)
[2025-05-05] MEDS: NSS (PRESERVATIVE FREE) 10 ML IV ×2 (07:48→19:48)
[2025-05-05] MEDS: PROTONIX IV 40 MG IV ×2 (07:48→19:48)
[2025-05-05] MEDS: EFFEXOR XR 150 MG PO (07:49)
[2025-05-05] MEDS: NORVASC 5 MG PO (07:49)
[2025-05-05] MEDS: CATAPRES 0.1 MG PO ×3 (07:49→15:53)
[2025-05-05] MEDS: ZOFRAN 4 MG IV (08:40)
[2025-05-05 13:04] LABS: Magnesium 1.5 mg/dl (1.6-2.3)
[2025-05-05] MEDS: OMNIPAQUE 50 ML PO (14:20)
--- NOTE | 2025-05-05 14:46 | CM ---
Placed a call to [facility] and spoke with Lisa who confirmed that she is actively working on placement with patient.
Plan: Case management will continue to follow and assist with discharge planning. Rehab, assistance with help of [facility].
[2025-05-05] MEDS: MAGNESIUM OXIDE 500 MG PO (15:50)
[2025-05-05] MEDS: APRESOLINE 25 MG PO (16:54)
[2025-05-05] MEDS: CATAPRES 0.2 MG PO (19:48)
[2025-05-05] MEDS: VITAMIN B1 100 MG PO (19:48)
[2025-05-05] MEDS: FLUSH (NSS) 2 FLUSH IV (19:49)
[2025-05-05] MEDS: TYLENOL 1000 MG PO (19:49)
[2025-05-06] VITALS (7 sets, daily range): BP systolic 113–189; BP diastolic 68–105
[2025-05-06 07:05] LABS: Hematocrit 31.0 % (39.0-52.0); Hemoglobin 11.0 g/dL (13.0-18.0); Mean Corp Hgb Conc. 35.5 g/dL (33.0-37.0); Mean Corpuscular Volume 87.1 fL (80.0-94.0); Platelet Count 241 10^3/uL (130-400); Red Cell Dist. Width 14.8 % (11.5-14.5)
--- NOTE | 2025-05-06 07:20 | W.PN.HOSP.TC ---
Addendum entered and electronically signed by Mercedez Campo MD 05/06/25 14:31:
I saw and evaluated the patient independently. I reviewed the resident�s note and agree with findings and plan as documented by Dr. Mueller.
GENERAL: well developed, well nourished, male, much improved
HEENT: NC/AT
HEART: regular rate and rhythm, +S1, +S2
LUNGS : clear to auscultation bilaterally
ABDOM: soft, tender LLQ now minimal, nondistended, + bowel sounds
EXT: no cyanosis, clubbing, or edema
NEUROLOGIC: grossly intact
Alcohol Withdrawal/Polysubstance Withdrawal --urine drug screen positive for methadone, fentanyl, benzodiazepines, cocaine--cont MSAS and COWS protocols--follow K, Mag--cont thiamine, folate--antiemetics--pt agreeable to inpt therapy post
hospitalization--looking at [place]--apprec [facility]--await CM and [facility] updates
Abdominal Pain--LLQ--possibly due to diverticulitis, splenic infarct/issues, ischemia-- less likely pancreatitis, does not seem like ascites--CT scan abdomen/pelvis shows colitis vs underdistention--since pain resolving on its own, would not start
ABX without fever, chills, elevated WBC etc...
QTc Prolongation--likely due to seroquel--improved since admission
Questionable Hematemesis (Kourtney Thornton tear vs alcoholic gastritis) -RESOLVED--Patient reported hematemesis just prior to arrival--no signs of active bleeding--HGB stable--
Suicidal Ideation--Patient positive for SI on screening upon admission--apprec psych--stop seroquel--effexor also may have some contribution but most likely from drug ingestion/withdrawal
Essential Hypertension--Continue Amlodipine, clonidine, metoprolol--BP still remains elevated--increase clonidine
DVT proph
code status--Full code
Original Note:
Today's Communication/Plan
-
[facility] f/u today
Possible discharge today or tomorrow
Assessment / Plan
Assessment / Plan
Assessment:
This is a 59 y/o male with pmhx of essential hypertension, polysubstance abuse (cocaine, benzos, fentanyl, alcohol) who presented to the ED from his [facility] on 05/02/2025 with nausea/vomiting/tremors/chills that started 2 days before while
consuming 1 bottle of vodka, fentanyl and benzos.
Alcohol Withdrawal/Polysubstance Withdrawal
-Admitted patient to the hospital for acute withdrawal from multiple substances. UDS on admission positive for methadone, fentanyl, benzodiazepines, cocaine
-Will monitor COWS and MSAS. Phenobarbital taper not indicated at this time.
-Continue Thiamine supplementation, Folic Acid supplementation, PRN Zofran for Nausea and PRN tylenol for Pain
-Patient has seen [facility] yesterday for inpatient rehabilitation following his discharge. Plan for another discussion with [facility] today
-Discussed case with CM to coordinate discharge
Abdominal Pain
-Previously diffuse, then localized to left side, only present mildly now with deep palpation of the upper left quadrant
-CT abdomen/Pelvis with oral and IV contrast showed possibly cystitis vs colitis
-Patient previously had a UA during this admission that was negative for bacteria. WBC count has also been normal and he has been free of fevers, chills
-Will continue to monitor patient for improving/worsening symptoms
QTc Prolongation
-517 ms on arrival, 433 05/05/2025
-Patient on both methadone and Seroquel at home.
-Continue telemetry with serial ECG
-Replete to keep Potassium > 4, Magnesium > 2
-Will continue to trend BMP and magnesium
Hypomagnesemia -RESOLVED
-Magnesium 1.5 on labs 05/05/2025, now 1.7
-Will continue to replete with goal to keep Magnesium >2
-Continue magnesium oxide supplementation
-Continue to monitor magnesium
Hyperkalemia
-Potassium 3.6 on 05/03/2025, 5.2 today
-Patient had received one dose of 40mEq K on 05/03/2025
-Will continue to monitor BMP
Questionable Hematemesis -RESOLVED
-Patient had reported seeing bright red blood in his vomit just prior to arrival
-DD concerning for Kourtney Thornton tear vs alcoholic gastritis
-Hemoglobin and Hematocrit have been stable for the last three days. No episodes of emesis since arrival
Suicidal Ideation
-Patient positive for SI on screening upon admission
-Status post psych evaluation, now off one-to-one
Essential Hypertension
-Continue home meds (Amlodipine, metoprolol)
-Continue clonidine dose to 0.2mg BID, hydralazine PRN for SBP > 150
Anticipated Discharge: Within 24 hours
Subjective/Interval History
-
Date of Service: May 06, 2025
Patient was doing very well when I arrived. He states he had just received his Zofran, and that he had some nausea that quickly resolved over the course of our conversation. He also received Ativan and methadone while I was in the room. He states
his abdominal pain was significantly improved from yesterday, and only somewhat present when he pressed very hard against his abdomen. His chest pain was completely resolved. He states he will speak to [facility] again today to finish coordination for
the inpatient rehab he will be going to after his discharge.
Objective Data
-
Labs:
Laboratory Results
05/06/25
06:46
WBC 4.2 L
Hgb 11.0 L
Hct 31.0 L
Plt Count 241
Sodium Pending
Potassium Pending
Chloride Pending
Carbon Dioxide Pending
BUN Pending
Creatinine Pending
Glucose Pending
Calcium Pending
Vital Signs:
Vital Signs
Temp Pulse Resp BP Pulse Ox
98.3 F 56 16 150/84 100
05/06/25 03:03 05/06/25 03:03 05/06/25 03:03 05/06/25 03:03 05/06/25 03:03
I&O
05/05/25 05/06/25 05/07/25
06:59 06:59 06:59
Intake Total 720 / 720 900 / 900
Balance 720 / 720 900 / 900
Review of Systems
-
History Source: Patient
Constitutional: Denies Fever, No Appetite, Fatigue, Night Sweats, Chills or Weakness
Respiratory: Denies Cough, Trouble Breathing or Wheezing
Cardiac: Denies Chest Pain or Palpitations
Abdomen/GI: Reports Abdominal Pain (Significantly improved since yesterday, only present when pushing against his own stomach) and Nausea (Improved); Denies Vomiting, Diarrhea or Constipated
Musculoskeletal: Denies Joint Pain or Muscle Pain
Neuro: Reports Tremors; Denies Dizzy, Headache, Weakness, Numbness, Ataxia or Lightheadedness
Physical Exam
-
General: Well Developed, Well Nourished, No Apparent Distress and Comfortable
HEENT: Normocephalic and Atraumatic
Respiratory: Clear to Auscultation
Cardiac: Regular Rhythm, S1/S2 and Other (No tenderness to palpation of sternum or ribs)
GI: Soft and Tender (Very mild tenderness on palpation of left upper quadrant without guarding, nontender to other areas of abdomen )
Skin: Warm and Dry
Neuro: Awake, Alert, Oriented and Tremors (No tremors at rest, mild tremors when extending arms towards objects to grab them)
Psych: Calm and Intact Judgement/Insight
[2025-05-06 07:30] LABS: Blood Urea Nitrogen 20 mg/dl (9-20); Calcium 9.6 mg/dl (8.4-10.2); Carbon Dioxide 29 mmol/L (22-30); Chloride 100 mmol/L (98-107); Estimated Creatinine Clearance 70 ml/min; Glucose 109 mg/dl (70-99); Magnesium 1.7 mg/dl (1.6-2.3); Potassium 5.2 mmol/L (3.5-5.1); Sodium 134 mmol/L (135-145); eGFR > 60.00
[2025-05-06] MEDS: ZOFRAN 4 MG IV ×2 (07:39→18:45)
[2025-05-06] MEDS: METHADONE 100 MG/10 ML 40 MG PO (07:54)
[2025-05-06] MEDS: ATIVAN 1 MG PO ×2 (07:54→16:04)
[2025-05-06] MEDS: CARAFATE SUSPENSION 1 GM PO ×4 (07:56→21:06)
[2025-05-06] MEDS: NSS (PRESERVATIVE FREE) 10 ML IV ×2 (07:57→21:00)
[2025-05-06] MEDS: PROTONIX IV 40 MG IV ×2 (07:57→21:00)
[2025-05-06] MEDS: CATAPRES 0.2 MG PO ×2 (08:00→20:56)
[2025-05-06] MEDS: EFFEXOR XR 150 MG PO (08:00)
[2025-05-06] MEDS: MAGNESIUM OXIDE 500 MG PO (08:00)
[2025-05-06] MEDS: FOLVITE 1 MG PO (08:00)
[2025-05-06] MEDS: VITAMIN B1 100 MG PO ×2 (08:00→20:56)
[2025-05-06] MEDS: TOPROL XL 50 MG PO (08:04)
[2025-05-06] MEDS: NORVASC 5 MG PO (08:04)
[2025-05-06] MEDS: APRESOLINE 25 MG PO (11:43)
--- NOTE | 2025-05-06 16:08 | CM ---
Received call from Reilly at [facility] who stated that he is talking to admissions at [facility] and may be able to get patient in to facility. Attending updated. Clinical information faxed to Reilly for update to send to facility.
Plan: Case management will continue to follow and assist with discharge planning. Patient will transfer to dual facility.
[2025-05-06] MEDS: MELATONIN 5 MG PO (23:14)
[2025-05-07 03:00] VITALS: BP 151/79
[2025-05-07] MEDS: ATIVAN 1 MG PO (04:13)
--- NOTE | 2025-05-07 04:32 | PTCARENOTE ---
Pt [id number] to make his needs known.Pt anxious at times only.IV team was called to check on pt IV dressing & site.Pt refuses for a new IV & wants to sleep.SENIOR [employer] DEVELOPER communications billing analyst made aware of pt on telemetry refuses for a new IV at this time.Plan of care
continued.
[2025-05-07 07:10] LABS: Hematocrit 30.2 % (39.0-52.0); Hemoglobin 10.6 g/dL (13.0-18.0); Mean Corp Hgb Conc. 35.1 g/dL (33.0-37.0); Mean Corpuscular Volume 88.3 fL (80.0-94.0); Platelet Count 238 10^3/uL (130-400); Red Cell Dist. Width 15.1 % (11.5-14.5)
[2025-05-07 07:27] VITALS: BP 138/76
[2025-05-07 08:02] LABS: Blood Urea Nitrogen 19 mg/dl (9-20); Calcium 9.4 mg/dl (8.4-10.2); Carbon Dioxide 26 mmol/L (22-30); Chloride 99 mmol/L (98-107); Estimated Creatinine Clearance 64 ml/min; Glucose 103 mg/dl (70-99); Magnesium 1.7 mg/dl (1.6-2.3); Potassium 4.4 mmol/L (3.5-5.1); Sodium 133 mmol/L (135-145); eGFR > 60.00
[2025-05-07] MEDS: METHADONE 100 MG/10 ML 40 MG PO (08:05)
[2025-05-07] MEDS: CARAFATE SUSPENSION 1 GM PO ×3 (08:05→16:35)
[2025-05-07] MEDS: MAGNESIUM OXIDE 500 MG PO (08:06)
[2025-05-07] MEDS: EFFEXOR XR 150 MG PO (08:07)
[2025-05-07] MEDS: CATAPRES 0.2 MG PO (08:07)
[2025-05-07] MEDS: VITAMIN B1 100 MG PO (08:07)
[2025-05-07] MEDS: FOLVITE 1 MG PO (08:07)
[2025-05-07] MEDS: NORVASC 5 MG PO (08:07)
[2025-05-07] MEDS: TOPROL XL 50 MG PO (08:07)
[2025-05-07] MEDS: PROTONIX IV IV (08:08)
[2025-05-07] MEDS: NSS (PRESERVATIVE FREE) IV (08:08)
[2025-05-07] MEDS: PROTONIX 40 MG PO (08:20)
--- NOTE | 2025-05-07 09:52 | W.PN.HOSP.TC ---
Addendum entered and electronically signed by Mercedez Campo MD 05/07/25 15:29:
I saw and evaluated the patient independently. I reviewed the resident�s note and agree with findings and plan as documented by Dr. Mueller.
GENERAL: well developed, well nourished, male, much improved
HEENT: NC/AT
HEART: regular rate and rhythm, +S1, +S2
LUNGS : clear to auscultation bilaterally
ABDOM: soft, tender LLQ now minimal, nondistended, + bowel sounds
EXT: no cyanosis, clubbing, or edema
NEUROLOGIC: grossly intact
Alcohol Withdrawal/Polysubstance Withdrawal --urine drug screen positive for methadone, fentanyl, benzodiazepines, cocaine--cont MSAS and COWS protocols--follow K, Mag--cont thiamine, folate--antiemetics--pt agreeable to inpt therapy post
hospitalization--accepted at [place]--apprec [facility]--OK for d/c
Abdominal Pain--LLQ--possibly due to diverticulitis, splenic infarct/issues, ischemia-- less likely pancreatitis, does not seem like ascites--CT scan abdomen/pelvis shows colitis vs underdistention--since pain resolving on its own, would not start
ABX without fever, chills, elevated WBC etc...
QTc Prolongation--likely due to seroquel which was stopped--improved since admission
Questionable Hematemesis (Kourtney Thornton tear vs alcoholic gastritis) -RESOLVED--Patient reported hematemesis just prior to arrival--no signs of active bleeding--HGB stable--
Suicidal Ideation--Patient positive for SI on screening upon admission--apprec psych--stop seroquel--effexor also may have some contribution but most likely from drug ingestion/withdrawal
Essential Hypertension--Continue Amlodipine, clonidine, metoprolol--BP still remains elevated--increase clonidine
DVT proph
code status--Full code
Original Note:
Today's Communication/Plan
-
Discharge today
Assessment / Plan
Assessment / Plan
Assessment:
This is a 59 y/o male with pmhx of essential hypertension, polysubstance abuse (cocaine, benzos, fentanyl, alcohol) who presented [facility] the ED [facility] 05[facility]25 with nausea/vomiting/tremors/chills that started 2 days before while
consuming 1 bottle of vodka, fentanyl and benzos.
Alcohol Withdrawal/Polysubstance Withdrawal
-Admitted patient to the hospital for acute withdrawal from multiple substances. UDS on admission positive for methadone, fentanyl, benzodiazepines, cocaine
-Will monitor COWS and MSAS. Phenobarbital taper not indicated at this time.
-Continue Thiamine supplementation, Folic Acid supplementation, PRN Zofran for Nausea and PRN tylenol for Pain. Thiamine and Folic acid should be continued following discharge
-Patient has seen [facility] yesterday and the day prior for inpatient rehabilitation following his discharge. Plan for discharge today
-Discussed case with CM to coordinate discharge today
Abdominal Pain - RESOLVED
-Previously diffuse, then localized to left side, now resolved
QTc Prolongation - RESOLVED
-517 ms on arrival, has been less than 450 since 05/05/2025
-Patient had been on both methadone and Seroquel at home. No longer taking Seroquel
-Patient no longer requires telemetry as QTc prolongation has resolved now that he is no longer taking seroquel
Hypomagnesemia -RESOLVED
-Magnesium 1.5 on labs 05/05/2025, then 1.7 on 05/06/2025 following repletion
-Magnesium today remains stable at 1.7
Hyperkalemia - RESOLVED
-Potassium 3.6 on 05/03/2025, 5.2 05/06/2025, and normal today
-Patient had received one dose of 40mEq K on 05/03/2025
Questionable Hematemesis -RESOLVED
-Patient had reported seeing bright red blood in his vomit just prior to arrival
-DD concerning for Kourtney Thornton tear vs alcoholic gastritis
-Hemoglobin and Hematocrit have been stable for the last three days. No episodes of emesis since arrival
Suicidal Ideation
-Patient positive for SI on screening upon admission
-Status post psych evaluation, now off one-to-one
Essential Hypertension
-Continue home meds (Amlodipine, metoprolol)
-Continue clonidine dose to 0.2mg BID, hydralazine PRN for SBP > 150
-Patient should continue 0.2mg BID dose of clonidine upon discharge
Anticipated Discharge: Today
Subjective/Interval History
-
Date of Service: May 07, 2025
Patient was doing very well when I arrived. He states that he saw [facility] yesterday and is excited about going to rehab following his discharge from this hospital. He denied any concerns today, and stated his abdominal pain was completely resolved.
Objective Data
-
Labs:
Laboratory Results
05/07/25
06:26
WBC 4.8
Hgb 10.6 L
Hct 30.2 L
Plt Count 238
Sodium 133 L
Potassium 4.4
Chloride 99
Carbon Dioxide 26
BUN 19
Creatinine 1.1
Glucose 103 H
Calcium 9.4
Vital Signs:
Vital Signs
Temp Pulse Resp BP Pulse Ox
98.6 F 60 18 138/76 99
05/07/25 07:27 05/07/25 08:07 05/07/25 07:27 05/07/25 08:07 05/07/25 08:01
I&O
05/06/25 05/07/25 05/08/25
06:59 06:59 06:59
Intake Total 900 / 900 960 / 960
Balance 900 / 900 960 / 960
Review of Systems
-
History Source: Patient
Constitutional: Denies Chills or Weakness
Respiratory: Denies Cough or Trouble Breathing
Cardiac: Denies Chest Pain
Abdomen/GI: Denies Abdominal Pain, Nausea, Vomiting, Diarrhea or Constipated
Musculoskeletal: Denies Joint Pain or Muscle Pain
Neuro: Denies Dizzy, Headache, Weakness, Numbness or Ataxia
Physical Exam
-
General: Well Developed, Well Nourished, No Apparent Distress and Comfortable
HEENT: Normocephalic and Atraumatic
Respiratory: Clear to Auscultation
Cardiac: Regular Rhythm and S1/S2
GI: Soft and Nontender
Skin: Warm and Dry
Neuro: Awake, Alert and Oriented
Psych: Calm and Intact Judgement/Insight
--- NOTE | 2025-05-07 12:08 | CM ---
Spoke with Zora from [facility] who stated that she is reviewing information that was sent and sent all clinical to [facility]. She stated that she will confirm today when patient can transfer but indicated that it should be today. Attending
updated.
Plan: Case management will continue to follow and assist with discharge planning. [facility].
--- NOTE | 2025-05-07 12:28 | W.PN.UPDATE ---
Update Note
Progress Note Update
patient seen chart reviewed. discussed with nursing. mr kenny was in a positive mood. he was very honest about his addiction and agreeable to transfer lateer today to rehab. he talked about the losses in his life...he was a jeweler and dealt in
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 he has little in the way of family 'they are all ' but he does have friends and is committed to starting over in a sober life. he feels his treatment her so far has been very helpful in
keeping him calm enough to deal. he spoke quite fondly of his many travels throughout the [place] including [place] and [place]. he hopes someday to be able to travel again. he will be transferred later to day [facility] to [facility].
continue w effexor. i see that seroquel was dc'ed. i don't think it needs to be tapered.
--- NOTE | 2025-05-07 14:20 | W.DCSUMMARY ---
Addendum entered and electronically signed by Mercedez Campo MD 05/07/25 15:31:
Read, reviewed, and agree. See same day progress note for additional details. Time spent coordinating care, DC planning, review of DC plan of care with resident, transition of care, review of records in EMR, med rec, consults, notes, d/w
consultants, nursing, family, and CM = 35 minutes
Original Note:
Discharge Summary
Discharge Data
Date of Admission: 05/02/25
Date of Discharge: 05/07/25
-
Pending Results: No
Hospital Course
This is a 59 y/o male with pmhx of essential hypertension, polysubstance abuse (cocaine, benzos, fentanyl, alcohol) who presented to the ED from his [facility] on 05/02/2025 with nausea/vomiting/tremors/chills that started 2 days before his
arrival. He reports that 2 days ago was the last time he had used alcohol, fentanyl and benzodiazepines. His symptoms have worsened since then, and he also experienced hallucinations of ghosts in the ED.
Upon arrival in the ED his SBP was elevated at 204, his heart was tachycardia at 120bpm. EKG showed sinus tachycardia with a prolonged QTc of 517. Chest X-ray was negative for acute findings though did show a hiatal hernia. He was given clonidine
0.1mg, lorazepam 2mg and IV pantoprazole 80mg. UDS was positive for methadone, fentanyl, benzodiazepines and cocaine. He was admitted to the hospital with MSAS and COWS protocols for further workup.
In the hospital, he was started on Thiamine supplementation, folic acid supplementation, Zofran PRN for nausea and IV pantoprazole. He continued to experience some abdominal pain throughout his hospitalization, and CT scan Abdomen/Pelvis showed
colitis vs underdistention, though ultimately the abdominal pain resolved without any intervention required.
His QTc interval decreased once his Seroquel was stopped, and returned to normal on 05/05/2025. During this time he was repleted with a goal to keep his potassium >4 and his Magnesium >2. His Potassium was 3.7 on 05/04/2025, so he was repeated and
briefly experienced an elevated potassium of 5.2 on 05/06/2025 before it returned to normal on 05/07/2025. His magnesium was also low at 1.5 on 05/05/2025, and he was given magnesium oxide for repletion. Leading up to his discharge he met with Barbara,
and agreed to inpatient rehab following his discharge. Patient was found to be medically stable on 05/07/2025 and discharged to a acute rehab facility with instructions to follow up with his PCP.
Discharge Plan
-
Patient Disposition: Acute Rehab Facility
Discharge Diagnosis/Procedures: Alcohol Withdrawal/Polysubstance Withdrawal, Alcohol Dependence/Polysubstance Dependence, QTc Prolongation, Abdominal Pain, Hypomagnesemia, Hyperkalemia, Essential Hypertension, Questionable Hematemesis, Suicidal
Ideation
Condition: Good
Diet: No restrictions
Activity: No restrictions
Bathing Restrictions: None
Referrals:
Rosalie Gary MD [Family Provider, Internal Medicine] - in less than 1 week
Prescriptions:
New
clonidine HCl 0.2 mg Tablet
0.2 mg PO BID Qty: 60 0RF
folic acid 1 mg Tablet
1 mg PO DAILY Qty: 30 0RF
thiamine mononitrate (vit B1) 100 mg Tablet
100 mg PO BID Qty: 30 0RF
Continued
methadone 10 mg/5 mL Solution
40 mg PO DAILY
Patient Comments:
patient goes to [facility].
Amlodipine Tablets
1 tab PO DAILY
Metoprolol
1 tab PO DAILY
Patient Comments:
no pharamcy records, no ecw as of 05/02/25
venlafaxine [Effexor XR] 150 mg Capsule,Extended Release 24hr
150 mg PO DAILY
Discontinued
Clonidine Tablets
0.1 mg PO BID
quetiapine [Seroquel] 200 mg Tablet
200 mg PO HS
Discharge Orders:
Discharge Patient (As Directed); Ordered 05/07/25
Ordered By: Anu Mueller
Discharge Date and Time
Print Language: UPPER SORBIAN
[2025-05-07 15:57] VITALS: BP 134/79
--- NOTE | 2025-05-07 16:35 | PTCARENOTE ---
Pt AAO x3, CORDOVA well, ambulatory in room/to BR; joni well, VSS. On room air- pulse ox 99%, no SOB. Abd soft, rounded, joni PO well. reports BM x1 today. Voids in BR without difficulty. Afebrile; skin W/D/I. Resting in bed at present. Awaiting
transfer to rehab facilty/[facility].
--- NOTE | 2025-05-07 17:28 | PTCARENOTE ---
Pt DC'd to [facility]. DC instructions reviewed with pt- no dosages noted for Amlodipine and Norvasc medications. 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 DR. Campo and Ami notified.
== END 2025-05-07 17:28 | DRG 896 ==
LOC: 4 EAST ACU 12:48
PROVIDERS: ADMITTING PHYSICIAN Internal Medicine; ATTENDING PHYSICIAN Internal Medicine; CONSULT PHYSICIAN Psychiatry & Neurology Psychiatry; EMERGENCY PHYSICIAN Emergency Medicine; FAMILY PHYSICIAN Internal Medicine
DX: F10.231 Alcohol dependence with withdrawal delirium (principal); K22.6 Gastro-esophageal laceration-hemorrhage syndrome; K85.90 Acute pancreatitis without necrosis or infection, unspecified; K92.0 Hematemesis; F13.10 Sedative, hypnotic or anxiolytic abuse, uncomplicated; F11.10 Opioid abuse, uncomplicated; F14.10 Cocaine abuse, uncomplicated; K29.20 Alcoholic gastritis without bleeding; Z82.49 Family history of ischemic heart disease and other diseases of the circulatory system; I10 Essential (primary) hypertension; R94.31 Abnormal electrocardiogram [ECG] [EKG]; F17.210 Nicotine dependence, cigarettes, uncomplicated; E83.42 Hypomagnesemia; E87.5 Hyperkalemia; F32.A Depression, unspecified; I16.0 Hypertensive urgency; K21.9 Gastro-esophageal reflux disease without esophagitis; K44.9 Diaphragmatic hernia without obstruction or gangrene; Z79.899 Other long term (current) drug therapy
CPT/HCPCS: 71046; 74177; 80048; 80053; 80076; 80306; 80307; 81003; 81015; 82010; 82077; 82977; 83690; 83735; 84100; 84132; 84484; 85025; 85027; 85610; 85730; 93005; 96374; 96375; 99291; Q9967